=== PATIENT | female | born 1980 | race Caucasian/White ===

== ENCOUNTER → 2019-08-03 | Outpatient (CLI) | payer OTHER ==
[2019-08-03 11:39] VITALS: BP 125/85; PULSE 69; RESP 18
--- NOTE | 2019-08-03 12:14 | P.PAINCN ---
History of Present Illness - Reason for Consult Consult date: 08/03/19 Severe headache - History of Present Illness This is the initial consultation visit for this 38 years old female, with a history of severe headaches started at the base of the skull and radiated to the top of the head, started end of May while she was driving home from work, she reported the headache is constant and increases with any neck movement, she denies any visual or sensory aura, she denies any change in the vision, she denies any motor or sensory deficit, and she was treated for this headache was Topamax 25 mg daily at bedtime,and that provided her with minimal benefit, Past Medical History Past Medical History: No Reported History Additional Past Medical History / Comment(s): foot injury sparined tendon had p/t History of Any Multi-Drug Resistant Organisms: None Reported Past Anesthesia/Blood Transfusion Reactions: No Reported Reaction Past Psychological History: Anxiety Smoking Status: Light tobacco smoker Past Alcohol Use History: None Reported, Rare Past Drug Use History: None Reported Medications and Allergies Home Medications Medication Instructions Recorded Confirmed Type Diazepam [Valium] 1 tab PO BID 08/03/19 08/03/19 History Naproxen [Naprosyn] 1 tab PO DAILY 08/03/19 08/03/19 History SUMAtriptan SUCCINATE [Imitrex] 1 tab PO PRN 08/03/19 History Topiramate [Topamax] 1 tab PO HS PRN 08/03/19 08/03/19 History Allergies Allergy/AdvReac Type Severity Reaction Status Date / Time No Known Allergies Allergy Verified 08/03/19 11:20 Physical Exam Vitals: Vital Signs Pulse Resp BP Pulse Ox 08/03/19 11:27 69 18 125/85 100 Intake and Output 08/02/19 08/03/19 08/03/19 22:59 06:59 14:59 Other: Weight 74.843 kg REVIEW OF ORGAN SYSTEMS: CONSTITUTIONAL: No fevers or chills. No recent weight loss. EYES: History of troubles with vision. No glasses. HEENT: No difficulties with hearing. No nosebleeds. No difficulty swallowing. RESPIRATORY: Past pneumonia. Denies any troubles with breathing or dyspnea on exertion. CARDIOVASCULAR: Denies any chest pain, palpitations, or recent heart attacks. GASTROINTESTINAL: Denies fatty food intolerance. Has change in bowel habits and gas bloat. GENITOURINARY: Denies any blood in urine. Has increased urinary frequency. NEUROLOGICAL: Has headaches ,Denies any numbness or tingling along the distal extremities. No seizure disorders or headaches. MUSCULOSKELETAL: Has neck pain, SKIN: Past t skin cancer. No rash. PSYCHIATRIC: Denies current depression or suicidal thoughts. ENDOCRINE: Denies current thyroid disorders. Denies any blood sugar glucose intolerance. HEME/LYMPHATIC: Denies any lumps and bumps around the neck. History of deep venous thrombosis. ALLERGY/IMMUNOLOGY: No immunoglobulin therapy. No immune deficiencies. BREAST: Denies current breast lumps, pain or nipple discharge. Physical Examinations : Constitutiona : Cooperative , not in acute distress . HEENT : nech : supple , no Lymphadenopathy , normal thyroid size . eyes : no ptosis , no icterus, no photophobia . ENT : normal of hearing , normal oropharynx , no Thrush . . neurologic : Cranial nerve II to XII intact , no focal neurological deffecit . psychatric : alert , oriented X 3 , appropriate affect , intact judgment and insight . Lymphatic : no Lymphadenopathy . musculoskeltal : Cervical Spine motor stregnth in the deltoid and biceps, normal right side , normal Left side motor stregnth biceps and the wrist extensors normal right side ,normal left side . motor stregnth in the triceps muscle . normal Right side , normal Left side deep tendon reflexes normal at the biceps , normal at Brachioradialis , normal at triceps. cervical facet loading test: Positive Bilaterally Spurling test negative bilaterally Neck distraction test negative bilaterally. Darnell sign negative bilaterally. Tenderness over the occipital nerves bilaterally Flexion and extension of the neck associated with severe pain Lumber spine moter stegnth lower extremities ,thigh and legs 5/5 Right side , 5/5 Left side Results Comments: MRI of the "the brain with and without contrast= filing concerning for a septic versus infectious meningitis ( 06/25/2019 ) CT of the head without contrast= unremarkable Assessment and Plan Plan: Assessment and plan=1-occipital neuralgia. 2-cervical spondylosis. 3-cervicogenic headache. Recommend continue Topamax 25 mg daily at bedtime, and patient could benefit from amitriptyline 10 mg daily at bedtime, The patient already scheduled to have MRI of the cervical spine to be done in the next few days, we'll review the results once available Also patient could benefit from bilateral occipital nerve block WILBERT, procedure risk and benefits and alternatives discussed with the patient and her and they agree to proceed Time with Patient: Greater than 30 PQRS Measure Charge Sheet Measure #130: Documentation of Current Meds in Medical Chart: Patient's medications documented in chart Measure #226: Tobacco Use: Screen & Cessation Intervention: Pt screened for tobacco use AND intervention given Measure #111: Pneumonia Vaccination: Pneumococcal vaccine NOT administered or previously given Measure #47: Advance Care Plan: Advance care planning discussed & documented, pt chose/unable to give Measure #412: Opioid Treatment Agreement: No documentation of signed opioid edy atment agreement Measure #408: Opioid Therapy Follow-up Evaluation: Patient had NO f/u eval minimum every 3 months during opioid therapy Measure #317: Preventitive Care & Scrn High Bld Press & F/U: Normal blood pressure, f/u not required Measure #128: Body Mass Index (BMI) Screening & Follow-up: BMI documented within normal parameters Measure #131: Pain Assessment & Follow-up: Pain positive & plan documented, Follow-up scheduled Measure #431: Unhealthy Alcohol Use Preventative Care & Scrn: Patient not identified as an unhealthy alcohol user PQRS Narrative: Smoking Status Light tobacco smoker Blood Pressure 125/85 Pain Intensity [Bilateral Neck 8 ] Scale Used Numeric (1 - 10) Hx Alcohol Use (MH) Yes: occasional Home Medications: Ambulatory Orders Diazepam [Valium] 1 tab PO BID 08/03/19 Naproxen [Naprosyn] 1 tab PO DAILY 08/03/19 SUMAtriptan SUCCINATE [Imitrex] 1 tab PO PRN 08/03/19 Topiramate [Topamax] 1 tab PO HS PRN 08/03/19
== END | disposition home or self-care (01) ==
LOC: PNWHC3 10:48
PROVIDERS: ATTEND Specialist
DX: M54.81 Occipital neuralgia (principal); M47.812 Spondylosis without myelopathy or radiculopathy, cervical region; R51 Headache; Z79.1 Long term (current) use of non-steroidal anti-inflammatories (NSAID); Z79.899 Other long term (current) drug therapy; F17.290 Nicotine dependence, other tobacco product, uncomplicated
CPT/HCPCS: 99201

== ENCOUNTER 2019-08-10 09:54 | Day surgery (SDC) | payer OTHER ==
[2019-08-07 10:09] VITALS: BMI 25.0
[~2019-08-10 09:54] MED LIST: LACTATED RINGERS 1,000 ML IV SCH
[2019-08-10 10:20] VITALS: TEMP 98.3
--- NOTE | 2019-08-10 10:44 | P.PCN ---
Date of Procedure: 08/10/19 Procedure(s) Performed: Preoperative diagnoses= 1- Greater occipital neuralgia. 2-cervical spondylosis. 3-cervicogenic headache Postoperative diagnoses= same as preoperative diagnosis. Procedure= Bilateral Greater occipital nerve block Anesthesia= moderate sedation with Versed 2 mg and fentanyl 50 micrograms and local infiltration with lidocaine 1% 4 ml Estimated blood loss=minimal. Procedure indication= the patient had a history of severe chronic neck pain ,and headache, diagnosed with occipital neuralgia exam was positive for severe tenderness over the occipital nerve bilaterally, she will be a good candidate occipital nerve block, patient failed conservative management Procedure description= the patient was seen and identified in the preoperative holding area, risks and benefits and alternative of the procedure and possible complications discussed with the patient, and he agreed with the preceding, patient signed the consent, an IV was started, and vital signs were monitored and were stable throughout the procedure, patient was placed in the sitting position or table and the neck area was prepped and draped with a sterile fashion, vital signs were closely monitored during the procedure, 25-gauge needle advanced 1 inch lateral to the occipital protuberance on the right side, at the location of the right occipital nerve , then after negative aspiration for heme and CSF and there was no paresthesia during the injection, 6 ml of Robivacaine 0.5% and 40 mg of Depo-Medrol injected after negative aspiration, the needle removed, and the entire same procedure was repeated for the left Greater occipital nerve. Patient tolerated the procedure well without any complication, The patient returned to supine position after the back was cleaned and a Band- Aid applied, the patient transported to recovery room in stable condition and he was monitored for 30 minutes before he was discharged home and then patient was reexamined before going home and patient was discharged in stable condition and patient will follow up with the pain clinic in a few weeks.
[2019-08-10] MEDS ORDERED: IV FLUID CONTINUATION 1,000 ML IV ONE ×2 (10:50)
[2019-08-10 11:10] VITALS: BP 118/71; PULSE 65; RESP 16
== END 2019-08-10 11:20 | disposition home or self-care (01) ==
LOC: ORPAIN 09:54
PROVIDERS: ATTEND Specialist
DX: G89.29 Other chronic pain (principal); M54.81 Occipital neuralgia; M47.812 Spondylosis without myelopathy or radiculopathy, cervical region; F41.9 Anxiety disorder, unspecified; F17.200 Nicotine dependence, unspecified, uncomplicated; Z79.1 Long term (current) use of non-steroidal anti-inflammatories (NSAID); Z79.899 Other long term (current) drug therapy
CPT/HCPCS: 81025; 64405; J2250; J1030; J3010

== ENCOUNTER 2019-09-01 08:36 | Day surgery (SDC) | payer OTHER ==
[2019-08-28 15:06] VITALS: BMI 24.3
[2019-09-01 08:49] VITALS: TEMP 98.4
[2019-09-01] MEDS ORDERED: LACTATED RINGERS 1,000 ML IV ONE (09:00)
[2019-09-01] MEDS ORDERED: LIDOCAINE 1% 20 ML VIAL (10MG/ML) FOR IV START INTRADERMA ONE (09:00)
--- NOTE | 2019-09-01 09:28 | P.PCN ---
Date of Procedure: 09/01/19 Procedure(s) Performed: Pre-operative diagnosis: Bilateral occipital neuralgia Post Operative Diagnosis same Procedure: Bilateral occipital nerve block ANESTHESIA: Moderate sedation with Versed 2 mg, sedation time 3 minutes EBL: Minimal PROCEDURE INDICATION: The patient with neck pain and headache secondary to occipital neuralgia unresponsive to conservative treatments. PROCEDURE DESCRIPTION / TECHNIQUE: The patient was seen and identified in the preoperative area. Risks, benefits, complications, and alternatives were discussed with the patient, the patient agreed to proceed with the procedure and signed the consent. IV was started. Vital signs remained stable throughout the procedure. Patient was taken to the OR and time out was completed. The patient was placed in the seated position on the procedure table. The cervical area and Bilateral occiptial area were prepped with alcohol swab. Vital signs were closely monitored during the procedure. The Bilateral occiptal ridge was palpated and was then accessed with a 25 G needle. Then after negative aspiration, 3 ml of the block solution containing 5 ml of ropivacaine 0.5% and Depo-Medrol 80 mg mg was injected at each site. Needle was withdrawn intact. Patient tolerated procedure well. No acute complications.
[2019-09-01] MEDS ORDERED: IV FLUID CONTINUATION 725 ML IV ONE (09:40)
[2019-09-01] MEDS ORDERED: LACTATED RINGERS 1,000 ML IV SCH (09:51)
[2019-09-01 09:54] VITALS: PULSE 69; RESP 18
[2019-09-01 10:03] VITALS: BP 109/72
== END 2019-09-01 10:08 | disposition home or self-care (01) ==
LOC: ORPAIN 08:36
PROVIDERS: ATTEND Anesthesiology
DX: M79.2 Neuralgia and neuritis, unspecified (principal); M47.892 Other spondylosis, cervical region; F41.9 Anxiety disorder, unspecified; F17.200 Nicotine dependence, unspecified, uncomplicated; Z79.1 Long term (current) use of non-steroidal anti-inflammatories (NSAID); Z79.899 Other long term (current) drug therapy
CPT/HCPCS: 81025; 64405; J2250; J1030